=== PATIENT | female | born 1960 | race Caucasian/White ===

== ENCOUNTER 2017-01-14 00:43 | Emergency (ER) | payer OTHER ==
--- NOTE | 2017-01-14 03:20 | ED ORDER SUMMARY ---
..... Patient: BRISSA ORO OrderSheet [facility] VisitID: [id number] [address] [place] [address] 56y, F Registration Date/Time: 01/14/2017 ORDER SHEET Weight: 81.6 kg (stated) Allergies: No Known Drug Allergy GENERAL ORDERS: CBC w Diff Urgent (01:01/14/2017 HSoule per protocol) (Ack 1:15 AMcQuoid ER Tech1) (1:15 AMcQuoid ER Tech1) (1:16 CBradburn R.N.) CMP Urgent (:01/14/2017 HSoule per protocol) (Ack 1:15 AMcQuoid ER Tech1) (1:15 AMcQuoid ER Tech1) (1:16 CBradburn R.N.) UA-Culture if indicated Urgent (:01/14/2017 HSoule per protocol) (Ack 1:15 AMcQuoid ER Tech1) (2:18 CBradburn R.N.) Amylase Urgent (:01/14/2017 HSoule per protocol) (Ack 1:15 AMcQuoid ER Tech1) (1:15 AMcQuoid ER Tech1) (1:16 CBradburn R.N.) Lipase Urgent (01:01/14/2017 HSoule per protocol) (Ack 1:15 AMcQuoid ER Tech1) (1:15 AMcQuoid ER Tech1) (1:16 CBradburn R.N.) Abdomen 1V Urgent (02:26 01/14/2017 Ladonna Umaña) (Ack 2:28 RKaruga) (2:36 CBradburn R.N.) CT Abd/Pel wo Cont Urgent (02:40 01/14/2017 Ladonna Umaña) (2:45 CBradburn R.N.) Culture, Urine (Urine, Clean Catch) Urgent (03:15 01/14/2017 Ladonna Umaña) (3:17 CBradburn R.N.) MEDICATION ORDERS: Insulin Reg Subcut 10 units (HIGH ALERT MEDICATION, NOW) (02:26 01/14/2017 Ladonna Umaña) (Ack 2:43 CBradburn R.N.) (2:55 Amy R.N.) IV FLUIDS: IV Saline Lock (01:14 01/14/2017 HSoule per protocol) (1:15 KYRAradvikas R.N.) IV NS : initial bolus none -, then 1000 mL/hr for X1 (NOW) (01:01/14/2017 Ladonna Umaña) (1:45 Amy R.N.) Toradol IV 30 mg (NOW) (:01/14/2017 Ladonna Umaña) (1:46 Amy R.N.) Zofran IV 4 mg (NOW) (:01/14/2017 Ladonna Umaña) (1:46 Amy R.N.) Ceftriaxone IV 1 gm/50mL (NOW) (03:16 01/14/2017 Ladonna Umaña) (Ack 3:20 CBradvikas R.N.) (3:24 KYRAradvikas R.N.) ORDER SHEET NOTES: [Electronically signed by Ailyn Cuevas R.N. (03:51 01/14/2017)] [Electronically signed by Hernan Moon Dr. (07:01 01/14/2017)] [Electronically locked/signed by Ailyn Cuevas R.N. (03:51 01/14/2017)]
--- NOTE | 2017-01-14 03:20 | ED ORDER SUMMARY ---
..... Patient: BRISSA ORO OrderSheet [facility] VisitID: [id number] [address] [place] [address] 56y, F Registration Date/Time: 01/14/2017 ORDER SHEET Weight: 81.6 kg (stated) Allergies: No Known Drug Allergy GENERAL ORDERS: CBC w Diff Urgent (01:01/14/2017 HSoule per protocol) (Ack 1:15 AMcQuoid ER Tech1) (1:15 AMcQuoid ER Tech1) (1:16 CBradburn R.N.) CMP Urgent (:01/14/2017 HSoule per protocol) (Ack 1:15 AMcQuoid ER Tech1) (1:15 AMcQuoid ER Tech1) (1:16 CBradburn R.N.) UA-Culture if indicated Urgent (:01/14/2017 HSoule per protocol) (Ack 1:15 AMcQuoid ER Tech1) (2:18 CBradburn R.N.) Amylase Urgent (:01/14/2017 HSoule per protocol) (Ack 1:15 AMcQuoid ER Tech1) (1:15 AMcQuoid ER Tech1) (1:16 CBradburn R.N.) Lipase Urgent (01:01/14/2017 HSoule per protocol) (Ack 1:15 AMcQuoid ER Tech1) (1:15 AMcQuoid ER Tech1) (1:16 CBradburn R.N.) Abdomen 1V Urgent (02:26 01/14/2017 Ladonna Umaña) (Ack 2:28 RKaruga) (2:36 CBradburn R.N.) CT Abd/Pel wo Cont Urgent (02:40 01/14/2017 Ldaonna Umaña) (2:45 CBradburn R.N.) Culture, Urine (Urine, Clean Catch) Urgent (03:15 01/14/2017 Ladonna Umaña) (3:17 CBradburn R.N.) MEDICATION ORDERS: Insulin Reg Subcut 10 units (HIGH ALERT MEDICATION, NOW) (02:26 01/14/2017 Ladonna Umaña) (Ack 2:43 CBradburn R.N.) (2:55 Amy R.N.) IV FLUIDS: IV Saline Lock (01:14 01/14/2017 HSoule per protocol) (1:15 KYRAradvikas R.N.) IV NS : initial bolus none -, then 1000 mL/hr for X1 (NOW) (01:01/14/2017 Ladonna Umaña) (1:45 Amy R.N.) Toradol IV 30 mg (NOW) (:01/14/2017 Ladonna Umaña) (1:46 Amy R.N.) Zofran IV 4 mg (NOW) (:01/14/2017 Ladonna Umaña) (1:46 Amy R.N.) Ceftriaxone IV 1 gm/50mL (NOW) (03:16 01/14/2017 Ladonna Umaña) (Ack 3:20 CBradviksa R.N.) (3:24 KYRAradvikas R.N.) ORDER SHEET NOTES: [Electronically signed by Ailyn Cuevas R.N. (03:51 01/14/2017)] [Electronically signed by Hernan Moon Dr. (07:01 01/14/2017)] [Electronically locked/signed by Ailyn Cuevas R.N. (03:51 01/14/2017)]
--- NOTE | 2017-01-14 03:20 | ED NURSING NOTES ---
Clinical Report - Nurses [place] [address] [place] [address] 01/14/2017 0:42 [id number] Triage time 00:49. Acuity: LEVEL 3. Chief Complaint: ABDOMINAL PAIN, NAUSEA and VOMITING. --00:58 Ailyn Cuevas R.N. 00:49 01/14/17. BP: 158/96 taken on the left arm, while lying. HR: 98 (regular and normal rate). RR: 18 (regular and unlabored). O2 saturation: 98% on room air. Temp: 99.2 F (oral). Pain level now: 03/23. --00:58 Ailyn Cuevas R.N. Weight: 81.6 kg stated. Height/Length: 63 inches Per Patient. BMI: 31.9. --00:51 Ailyn Cuevas R.N. Medications Lisinopril Oral, daily. --00:52 Ailyn Cuevas R.N. Gabapentin Oral (Tablet 800 mg) 1 tablet, 4x a day. --00:53 Ailyn Cuevas R.N. CloNIDine HCl Oral, 2x a day. --00:53 Ailyn Cuevas R.N. Lantus Subcutaneous 80 units, every AM. --00:53 Ailyn Cuevas R.N. HumaLOG Subcutaneous 13 units, before meals. --00:54 Ailyn Cuevas R.N. Allergies No Known Drug Allergy. --00:56 Ailyn Cuevas R.N. History Arrived by EMS. Historian: patient. Accompanied by family. Primary physician (Ricardo). This started today. ( Epigastric and LLQ pain today mostly some pain for a couple of days but worse today, c/o nausea denies vomiting). She has had abdominal pain. PAST MEDICAL HX: Diabetes mellitus. Immunizations: up-to-date. SOCIAL HX: Heavy tobacco smoker (cigarette)- 1-2 packs per day. No alcohol use or drug use. She has not traveled outside the [place] The patient was not exposed to tuberculosis, influenza, chicken pox, meningitis, MRSA, VRE, C-diff, SARS, Braeden flu, H1N1 flu, Ebola or MERS. No known contact with a sick individual. ABUSE ASSESSMENT: No report of abuse. SELF HARM ASSESSMENT: A self harm assessment was performed. The patient answered "no" to the question "Have you recently felt down, depressed, or hopeless?", "Have you noticed less interest or pleasure in doing things?", "Do you have thoughts of harming or killing yourself?", "Are you here because you tried to hurt yourself?", "Have you ever tried to hurt yourself before today?", "Have you recently had thoughts about harming or killing others?" and "Do you have any dangerous items in your possession?". FALL RISK ASSESSMENT: Fall risk assessment completed. No fall risk identified. NUTRITIONAL RISK ASSESSMENT: The nutritional risk assessment revealed no deficiencies. FUNCTIONAL ASSESSMENT: Functional assessment: no impairments noted. LEARNING NEEDS ASSESSMENT: The learning needs assessment revealed no barriers. SKIN INTEGRITY ASSESSMENT: Skin integrity risk assessment completed. No skin integrity risk identified. --00:58 Ailyn Cuevas R.N. PROBLEMS: Pancreatitis. Cellulitis. Diabetes Mellitus. Infections. Peripheral Neuropathy. Tetanus Status. Immunizations. --00:56 Ailyn Cuevas R.N. ADDITIONAL SURGERIES: Toe amputation. Tubal Ligation. --00:56 Ailyn Cuevas R.N. Interventions ID band on patient. --00:58 Ailyn Cuevas R.N. PHYSICAL ASSESSMENT To room via stretcher. GENERAL / NEURO / PSYCH: Alert. Oriented X 4. Appears in no acute distress. Appears in pain. HEENT: Mucous membranes are pink. RESPIRATORY: Respirations not labored. Breath sounds within normal limits. CVS: Normal sinus rhythm noted. Capillary refill less than 2 seconds. GI / : The patient has had intermittent episodes of nausea. Abdomen soft. Abdominal tenderness in the epigastric area and left upper quadrant. Bowel sounds within normal limits. SKIN: Skin is warm and dry. --00:59 Ailyn Cuevas R.N. NURSING PROGRESS NOTES 00:55 01/14/2017 Site #1 started via IV in the right antecubital space with an 20g angiocath, with aseptic technique and good blood return; one attempt. Blood drawn: rainbow set. Labeled in the presence of the patient and sent to the lab. Saline lock flushed with 10 mL saline. --00:59 Ailyn Cuevas R.N. Patient gowned. Reassurance given to the patient. Two patient identifiers checked. Call light placed in reach. Side rails up x 2. Bed placed in lowest position. Brakes of bed on. Patient ready for evaluation- chart flagged. --00:59 Ailyn Cuevas R.N. 01:40 01/14/2017 Started bag #1 1000 mL IV Fluids IV NS (Saline); bolus of 1000 mL wide open then over 1 hour(s) via site #1. Allergies verified and confirmed 5 rights. IV patency established. IV site checked: no pain, redness, or swelling. IV flushed thoroughly pre- and post-medication administration. --01:45 Ailyn Cuevas R.N. 01:41 01/14/2017 Toradol IVP 30 mg given over 2 minute(s) via site #1. Allergies verified and confirmed 5 rights. IV patency established. IV site checked: no pain, redness, or swelling. IV flushed thoroughly pre- and post-medication administration. IVP given by RN. --01:46 Ailyn Cuevas R.N. 01:43 01/14/2017 Zofran (Ondansetron HCl) IVP 4 mg given over 2 minute(s) via site #1. Allergies verified and confirmed 5 rights. IV patency established. IV site checked: no pain, redness, or swelling. IV flushed thoroughly pre- and post-medication administration. IVP given by RN. --01:46 Ailyn Cuevas R.N. Patient returned from radiology by stretcher with tech. (02:36). --02:36 Ailyn Cuevas R.N. Overall patient status is the same- she states feels the same. GI / : The patient reports abdominal pain located in the LUQ that is moderate in severity, is constant and is described as dull and radiating to the back. --02:42 Ailyn Cuevas R.N. 02:41 01/14/17. BP: 152/68 taken on the left arm. HR: 89 (regular and normal rate). RR: 18 (regular and unlabored). O2 saturation: 98% on room air. Temp: deferred. Pain level now: 02/20. --02:42 Ailyn Cuevas R.N. Patient transported to SC by stretcher with tech. (02:45). --02:45 Ailyn Cuevas R.N. 02:50 01/14/2017 IV Fluids IV NS Discontinued: bag #1 completed. Total amount infused: 1000 mL. IV patency established. IV site checked: no pain, redness, or swelling. IV flushed thoroughly. --02:50 Ailyn Cuevas R.N. Patient returned from CT by stretcher with tech. (02:51). --02:51 Ailyn Cuevas R.N. 02:55 01/14/2017 Insulin Reg Subcutaneous 10 unit given. Given in the right abdomen. Allergies verified and confirmed 5 rights. (witnessed by Lyric HARPER). --02:55 Ailyn Cuevas R.N. Overall patient status is improved- she states feels better. GI / : Abdomen soft. Bowel sounds within normal limits. SKIN: Skin is warm and dry. Skin color within normal limits. --02:56 Ailyn Cuevas R.N. Two patient identifiers checked. Call light placed in reach. Side rails up x 2. Bed placed in lowest position. Brakes of bed on. --02:56 Ailyn Cuevas R.N. 03:24 01/14/2017 Started 1 gm of Ceftriaxone IVPB in bag #1 50 mL; over 20 minute(s) via site #1 via IV pump. Allergies verified and confirmed 5 rights. IV patency established. IV site checked: no pain, redness, or swelling. IV flushed thoroughly pre- and post-medication administration. --03:24 Ailyn Cuevas R.N. 03:42 01/14/2017 Ceftriaxone IVPB Discontinued: bag #1 completed upon discharge. Total amount infused: 50 mL. IV patency established. IV site checked: no pain, redness, or swelling. IV flushed thoroughly. --03:48 Ailyn Cuevas R.N. 03:45 01/14/2017 Site #1 removed upon discharge. Catheter intact. Manual pressure and bandage applied. --03:49 Ailyn Cuevas R.N. 03:45 01/14/2017 IV Saline Lock Drip IV Discontinued: bag #1 upon discharge. Total amount infused: 50 mL. IV patency established. IV site checked: no pain, redness, or swelling. IV flushed thoroughly. --03:49 Ailyn Cuevas R.N. DISPOSITION / DISCHARGE Condition at departure: improved and stable. No learning barriers present. Discharge instructions provided and reviewed with the patient and family. Reviewed medication(s) side effects, precautions, dosing and course information. Prescription(s) given to the patient. Patient verbalized understanding. Written instructions provided in Faroese. The patient was discharged home and accompanied by family. She left the Emergency Department ambulatory and via private vehicle. Family member driving. --03:51 Ailyn Cuevas R.N. 03:45 01/14/17. BP: 154/70 taken on the left arm, while lying. HR: 83. RR: 18. O2 saturation: 100% on room air. Temp: deferred. Pain level now: 10/21. --03:51 Ailyn Cuevas R.N. Departure time: 0345. --03:51 Ailyn Cuevas R.N. Locked/Released at 01/14/2017 3:51 by Ailyn Cuevas R.N.
--- NOTE | 2017-01-14 03:20 | ED CLINICAL REPORT ---
Clinical Report - Physicians/Mid Levels [facility] [address] [place] [address] 01/14/2017 0:42 Patient: BRISSA ORO Time Seen: 00:54; initial patient contact. Arrived- By private vehicle. Historian- patient. HISTORY OF PRESENT ILLNESS Chief Complaint: ABDOMINAL PAIN. It is described as "pain" and diffuse. No radiation. It is described as located in the upper abdomen and in the left abdomen. At its maximum, severity described as moderate. When seen in the E.D., severity described as moderate. Modifying factors. Not worsened by anything. Not relieved by anything. The patient has had nausea. No loss of appetite, vomiting or diarrhea. Similar symptoms previously: Many times. Recent medical care: Not recently seen/assessed. REVIEW OF SYSTEMS The patient has had constipation. No difficulty with urination, pain with urination, fever or chills. All systems otherwise negative, except as recorded above. PAST HISTORY Pancreatitis. Cellulitis. Diabetes Mellitus. Infections. Peripheral Neuropathy. SURGERIES: Toe amputation. Tubal Ligation. Medications: HumaLOG Subcutaneous 13 units, before meals. Lantus Subcutaneous 80 units, every AM. CloNIDine HCl Oral, 2x a day. Gabapentin Oral (Tablet 800 mg) 1 tablet, 4x a day. Lisinopril Oral, daily. Allergies: No Known Drug Allergy. SOCIAL HISTORY Current every day heavy tobacco smoker. No alcohol use or drug use. ADDITIONAL NOTES The nursing notes have been reviewed. PHYSICAL EXAM Vital Signs: 01/14/2017 00:49 BP: 158/96. HR: 98. RR: 18. O2 saturation: 98%. Temp: 99.2 F. Pain level now: 8/10. Have been reviewed. Hypertensive. Heart rate normal. Respiratory rate normal. Temperature normal. Oxygen saturation normal. Appearance: Alert. Oriented X3. No acute distress. Eyes: Eyes normal inspection. No scleral icterus. ENT: Dry mucous membranes present. CVS: Normal heart rate and rhythm. Heart sounds normal. Respiratory: No respiratory distress. Breath sounds normal. Abdomen: Soft. Mild tenderness in the left side of the abdomen. No guarding or rebound tenderness. Bowel sounds normal. No organomegaly. No mass. Back: Normal inspection. No CVA tenderness. Skin: Skin warm and dry. Normal skin color. Extremities: No lower extremity edema. Neuro: Oriented X 3. LABS, X-RAYS, AND EKG KUB: No acute disease. Gas pattern normal. Normal abdominal study. Views: supine AP. Abdominal CT: Mild perinephric fat stranding on the L c/w pyelonephritis. Study type: renal stone evaluation. Abdominal CT performed without contrast. The study was independently viewed by me, interpreted by the radiologist and discussed with the radiologist. Laboratory Tests: UA-Culture if indicated: (GUSTAVO: 01/14/2017 02:13) ( MsgRcvd 01/14/2017 02:33) Final results Test Result Flag Units (Reference) URINE COLOR YELLOW URINE APPEARANCE CLEAR URINE GLUCOSE 3+ (NEGATIVE) URINE BILIRUBIN NEGATIVE (NEGATIVE) URINE KETONE 1+ (NEGATIVE) URINE SPECIFIC GRAVITY >= 1.030 (1.010-1.030) URINE PH 5.5 (5.0-8.0) URINE PROTEIN 3+ (NEGATIVE) URINE UROBILINOGEN 0.2 EU/dL (0.2-1.0) URINE NITRITE NEGATIVE (NEGATIVE) URINE BLOOD 2+ (NEGATIVE) URINE LEUK ESTERASE NEGATIVE (NEGATIVE) URINE RBC 3-5 rbc/hpf (0-1) URINE WBC 1-3 wbc/hpf (0-1) URINE EPITHELIAL CELLS RARE EPI/hpf (0-5) URINE BACTERIA NONE SEEN (NONE SEEN) URINE COMMENT CULT NOT INDICATED URINE CULTURES ARE SET-UP BASED ON THE FOLLOWING CRITERIA:POSITIVE NITRITEPOSITIVE LEUKOCYTE ESTERASEGREATER THAN 10 WHITE BLOOD CELLSMODERATE (2+) OR GREATER BACTERIA CBC w Diff: (GUSTAVO: 01/14/2017 01:00) ( MsgRcvd 01/14/2017 01:29) Final results Test Result Flag Units (Reference) WHITE BLOOD COUNT 11.9 H K/uL (4.5-11.5) RED BLOOD COUNT 4.66 M/uL (4.00-5.20) HEMOGLOBIN 14.2 gm/dL (12.0-16.0) HEMATOCRIT 40.8 % (36.0-46.0) MEAN CELL VOLUME 88 fL (80-100) MEAN CORPUSCULAR HGB 31 pg (26-34) MEAN CORPUSCULAR HGB CONC 35 g/dL (31-37) RED CELL DISTRIBUTION WIDTH 13.4 % (11.6-14.8) PLATELET COUNT 232 K/uL (150-400) NEUTROPHIL % 68.9 % (50-75) LYMPH % 24.1 L % (25-40) MONO % 5.7 % (3-14) EOSINOPHIL % 0.9 % (0-4) BASOPHIL % 0.4 % (0-2) CMP: (GUSTAVO: 01/14/2017 01:00) ( MsgRcvd 01/14/2017 01:37) Final results Test Result Flag Units (Reference) GLUCOSE 439 H mg/dL (70-110) BUN 27 H mg/dL (7-18) CREATININE 1.4 H mg/dL (0.6-1.3) Estimated GFR 41.34 mL/min Estimated GFR- 50.11 mL/min Note: Persistent reduction over 3 months in eGFR<60 mL/min/1.73 m2 defines CKD. Patients with eGFR values>=60 mL/min/1.73 m2 may also have CKD if evidence ofpersistent proteinuria. Additional information may be foundat www.kidney.org. SODIUM 136 mmol/L (136-145) POTASSIUM 4.5 mmol/L (3.5-5.1) CHLORIDE 97 L mmol/L (98-107) CARBON DIOXIDE 26 mmol/L (21-32) CALCIUM 9.2 mg/dL (8.5-10.1) TOTAL PROTEIN 7.6 g/dL (6.4-8.2) ALBUMIN 4.0 g/dL (3.3-5.0) BILIRUBIN, TOTAL 0.3 mg/dL (0.0-1.0) ALKALINE PHOSPHATASE 108 U/L (46-116) AST (SGOT) 15 U/L (15-37) ALT (SGPT) 23 U/L (12-78) LIPASE 205 U/L (73-393) AMYLASE 48 U/L (25-115) . PROGRESS AND PROCEDURES Disposition: Discharged home in good and improved condition. Condition: good. CLINICAL IMPRESSION Acute pyelonephritis INSTRUCTIONS Your Current Medications: CONTINUE TAKING THE FOLLOWING MEDICATIONS: CloNIDine HCl Oral : 2x a day. Gabapentin Oral : Tablet 800 mg, 1 tablet 4x a day. HumaLOG Subcutaneous : 13 units before meals. Lantus Subcutaneous : 80 units every AM. Lisinopril Oral : daily. Prescription Medications: Cefixime 400 mg: take 1 tab orally every day. No refill. (For 14 days. Disp #14) Follow-up: Follow up with your doctor in about three days. Call for an appointment. Blood pressure screening was not performed during this visit because the patient has an active diagnosis of hypertension. (Electronically signed by Hernan Moon Dr. 01/14/2017 7:01)
--- NOTE | 2017-01-14 07:01 | ED MAR SUMMARY ---
..... Medication Administration Record [facility] [address] [place] [address] Patient: BRISSA ORO Visit ID: [id number] 56y, F Weight: 81.6 kg Height/Length: 63 in BMI: 31.9 ALLERGIES: No Known Drug Allergy Start 01:40 01/14/2017 Ailyn Cuevas R.N., Stop 02:50 01/14/2017 Ailyn Cuevas R.N. Medication Administered: IV NS (SALINE), Dose: IV Fluids over 1 hour(s), Bolus: 1000 mL wide open, Dispensed: 1000 mL bag, Site: #1 right AC. Medication Ordered: IV NS : initial bolus none -, then 1000 mL/hr for X1 (NOW). Given 01:41 01/14/2017 Ailyn Cuevas R.N. Medication Administered: TORADOL [IVP], Dose: 30 mg IVP over 2 minute(s), Site: #1 right AC. Medication Ordered: Toradol IV 30 mg (NOW). Given 01:43 01/14/2017 Ailyn Cuevas R.N. Medication Administered: ZOFRAN [IVP] (ONDANSETRON HCL), Dose: 4 mg IVP over 2 minute(s), Site: #1 right AC. Medication Ordered: Zofran IV 4 mg (NOW). Given 02:55 01/14/2017 Ailyn Cuveas R.N. Medication Administered: INSULIN REG [SUBCUTANEOUS], Dose: 10 unit Subcutaneous. Medication Ordered: Insulin Reg Subcut 10 units (HIGH ALERT MEDICATION, NOW). Start 03:24 01/14/2017 Ailyn Cuevas R.N., Stop 03:42 01/14/2017 Ailyn Cuevas R.N. Medication Administered: CEFTRIAXONE [IVPB], Dose: 1 gm IVPB over 20 minute(s), Dispensed: 50 mL bag, Site: #1 right AC. Medication Ordered: Ceftriaxone IV 1 gm/50mL (NOW).
--- NOTE | 2017-01-14 07:01 | ED DISCHARGE INSTRUCTIONS ---
Patient: BRISSA ORO General Instructions [facility] VisitID: [id number] [address] [place] [address] 56y, F Registration Date/Time: 01/14/2017 Acute pyelonephritis INSTRUCTIONS Your Current Medications: CONTINUE TAKING THE FOLLOWING MEDICATIONS: CloNIDine HCl Oral : 2x a day. Gabapentin Oral : Tablet 800 mg, 1 tablet 4x a day. HumaLOG Subcutaneous : 13 units before meals. Lantus Subcutaneous : 80 units every AM. Lisinopril Oral : daily. Prescription Medications: Cefixime 400 mg: take 1 tab orally every day. No refill. (For 14 days. Disp #14) Follow-up: Follow up with your doctor in about three days. Call for an appointment. Blood pressure screening was not performed during this visit because the patient has an active diagnosis of hypertension. ADDITIONAL INFORMATION Kidney Infection [Adult, Female] An infection of the kidney is also called "pyelonephritis". It usually starts as a bladder infection ("cystitis") which spreads to the kidneys. Pyelonephritis is more serious than a bladder infection. It can cause severe illness if not treated properly. The usual symptoms include an aching pain in the back, side or lower abdomen. Other symptoms may include fever, chills, nausea, vomiting, an urge to urinate and a burning sensation when passing urine. Home Care: Stay home from work or school. Rest in bed until your fever breaks and you are feeling better. Drink lots of fluid (at least 6-8 glasses a day, unless you must restrict fluids for other medical reasons). This will force the medicine into your urinary system and flush the bacteria out of your body. Avoid sexual intercourse until you have finished all of your medicine and your symptoms have gone away. Avoid caffeine, alcohol and spicy foods which may irritate the kidney and bladder. You may use acetaminophen (Tylenol) or ibuprofen (Motrin, Advil) to control pain, unless another pain medicine was prescribed. [NOTE: If you have chronic liver or kidney disease or ever had a stomach ulcer or GI bleeding, talk with your doctor before using these medicines.] Follow Up with your doctor or as advised by our staff for a repeat urine test in 10 days. This will ensure that your infection is fully cleared. [NOTE: If you had an X-ray or CT scan, it will be reviewed by a specialist. You will be notified of any new findings that may affect your care.] Get Prompt Medical Attention if any of the following occur: Fever over 100.4F (38.0C) after 48 hours of treatment No improvement by the third day of treatment Increasing back or abdominal pain Repeated vomiting or inability to take oral medicine Weakness, dizziness or fainting Cefixime Oral tablet What is this medicine? CEFIXIME (sef IX eem) is a cephalosporin antibiotic. It is used to treat certain kinds of bacterial infections. It will not work for colds, flu, or other viral infections. How should I use this medicine? Take this medicine by mouth with a glass of water. Follow the directions on the prescription label. You can take it with or without food. If it upsets your stomach, take it with food. Take your medicine at regular intervals. Do not take it more often than directed. Take all of your medicine as directed even if you think your are better. Do not skip doses or stop your medicine early. Talk to your pbx inspector regarding the use of this medicine in children. While this drug may be prescribed for children as young as 6 months for selected conditions, precautions do apply. What side effects may I notice from receiving this medicine? Side effects that you should report to your doctor or health customer care specialist as soon as possible: allergic reactions like skin rash, itching or hives, swelling of the face, lips, or tongue bloody or watery diarrhea difficulty breathing or wheezing dizziness fever pain or trouble passing urine or change in the amount of urine redness, blistering, peeling or loosening of the skin, including inside the mouth seizures unusual bleeding or bruising unusually weak or tired yellowing of the eyes or skin Side effects that usually do not require medical attention (report to your doctor or health customer care specialist if they continue or are bothersome): diarrhea headache genital or anal irritation loss of appetite nausea, vomiting stomach pain, upset, or gas What may interact with this medicine? aspirin and aspirin-like medicines carbamazepine medicines that treat or prevent blood clots like warfarin What if I miss a dose? If you miss a dose, take it as soon as you can. If it is almost time for your next dose, take only that dose. Do not take double or extra doses. Where should I keep my medicine? Keep out of the reach of children. Store at room temperature between 20 and 25 degrees C (68 and 77 degrees F). Throw away any unused medicine after the expiration date. What should I tell my health care provider before I take this medicine? They need to know if you have any of these conditions: bleeding problems kidney disease stomach or intestine problems (especially colitis) an unusual or allergic reaction to cefixime, other cephalosporin or penicillin antibiotics, other foods, dyes or preservatives or trying to get breast-feeding What should I watch for while using this medicine? Tell your doctor or health customer care specialist if your symptoms do not improve or if you get new symptoms. Your doctor will monitor your condition and blood work as needed. Do not treat diarrhea with over the counter products. Contact your doctor if you have diarrhea that lasts more than 2 days or if it is severe and watery. This medicine can interfere with some urine glucose and some urine ketone tests. If you use such tests, talk with your health customer care specialist. If you are being treated for a sexually transmitted disease, avoid sexual contact until you have finished your treatment. Having sex can infect your sexual partner. You have been given the following additional information: Pyelonephritis, Female (Adult) Cefixime Oral tablet (Electronically signed by Hernan Moon Dr. 01/14/2017 7:01)
--- NOTE | 2017-01-14 07:01 | ED DISCHARGE INSTRUCTIONS ---
Patient: BRISSA ORO General Instructions [facility] VisitID: [id number] [address] [place] [address] 56y, F Registration Date/Time: 01/14/2017 Acute pyelonephritis INSTRUCTIONS Your Current Medications: CONTINUE TAKING THE FOLLOWING MEDICATIONS: CloNIDine HCl Oral : 2x a day. Gabapentin Oral : Tablet 800 mg, 1 tablet 4x a day. HumaLOG Subcutaneous : 13 units before meals. Lantus Subcutaneous : 80 units every AM. Lisinopril Oral : daily. Prescription Medications: Cefixime 400 mg: take 1 tab orally every day. No refill. (For 14 days. Disp #14) Follow-up: Follow up with your doctor in about three days. Call for an appointment. Blood pressure screening was not performed during this visit because the patient has an active diagnosis of hypertension. ADDITIONAL INFORMATION Kidney Infection [Adult, Female] An infection of the kidney is also called "pyelonephritis". It usually starts as a bladder infection ("cystitis") which spreads to the kidneys. Pyelonephritis is more serious than a bladder infection. It can cause severe illness if not treated properly. The usual symptoms include an aching pain in the back, side or lower abdomen. Other symptoms may include fever, chills, nausea, vomiting, an urge to urinate and a burning sensation when passing urine. Home Care: Stay home from work or school. Rest in bed until your fever breaks and you are feeling better. Drink lots of fluid (at least 6-8 glasses a day, unless you must restrict fluids for other medical reasons). This will force the medicine into your urinary system and flush the bacteria out of your body. Avoid sexual intercourse until you have finished all of your medicine and your symptoms have gone away. Avoid caffeine, alcohol and spicy foods which may irritate the kidney and bladder. You may use acetaminophen (Tylenol) or ibuprofen (Motrin, Advil) to control pain, unless another pain medicine was prescribed. [NOTE: If you have chronic liver or kidney disease or ever had a stomach ulcer or GI bleeding, talk with your doctor before using these medicines.] Follow Up with your doctor or as advised by our staff for a repeat urine test in 10 days. This will ensure that your infection is fully cleared. [NOTE: If you had an X-ray or CT scan, it will be reviewed by a specialist. You will be notified of any new findings that may affect your care.] Get Prompt Medical Attention if any of the following occur: Fever over 100.4F (38.0C) after 48 hours of treatment No improvement by the third day of treatment Increasing back or abdominal pain Repeated vomiting or inability to take oral medicine Weakness, dizziness or fainting Cefixime Oral tablet What is this medicine? CEFIXIME (sef IX eem) is a cephalosporin antibiotic. It is used to treat certain kinds of bacterial infections. It will not work for colds, flu, or other viral infections. How should I use this medicine? Take this medicine by mouth with a glass of water. Follow the directions on the prescription label. You can take it with or without food. If it upsets your stomach, take it with food. Take your medicine at regular intervals. Do not take it more often than directed. Take all of your medicine as directed even if you think your are better. Do not skip doses or stop your medicine early. Talk to your solution maker regarding the use of this medicine in children. While this drug may be prescribed for children as young as 6 months for selected conditions, precautions do apply. What side effects may I notice from receiving this medicine? Side effects that you should report to your doctor or health care navigator as soon as possible: allergic reactions like skin rash, itching or hives, swelling of the face, lips, or tongue bloody or watery diarrhea difficulty breathing or wheezing dizziness fever pain or trouble passing urine or change in the amount of urine redness, blistering, peeling or loosening of the skin, including inside the mouth seizures unusual bleeding or bruising unusually weak or tired yellowing of the eyes or skin Side effects that usually do not require medical attention (report to your doctor or health care navigator if they continue or are bothersome): diarrhea headache genital or anal irritation loss of appetite nausea, vomiting stomach pain, upset, or gas What may interact with this medicine? aspirin and aspirin-like medicines carbamazepine medicines that treat or prevent blood clots like warfarin What if I miss a dose? If you miss a dose, take it as soon as you can. If it is almost time for your next dose, take only that dose. Do not take double or extra doses. Where should I keep my medicine? Keep out of the reach of children. Store at room temperature between 20 and 25 degrees C (68 and 77 degrees F). Throw away any unused medicine after the expiration date. What should I tell my health care provider before I take this medicine? They need to know if you have any of these conditions: bleeding problems kidney disease stomach or intestine problems (especially colitis) an unusual or allergic reaction to cefixime, other cephalosporin or penicillin antibiotics, other foods, dyes or preservatives or trying to get breast-feeding What should I watch for while using this medicine? Tell your doctor or health care navigator if your symptoms do not improve or if you get new symptoms. Your doctor will monitor your condition and blood work as needed. Do not treat diarrhea with over the counter products. Contact your doctor if you have diarrhea that lasts more than 2 days or if it is severe and watery. This medicine can interfere with some urine glucose and some urine ketone tests. If you use such tests, talk with your health care navigator. If you are being treated for a sexually transmitted disease, avoid sexual contact until you have finished your treatment. Having sex can infect your sexual partner. You have been given the following additional information: Pyelonephritis, Female (Adult) Cefixime Oral tablet (Electronically signed by Hernan Moon Dr. 01/14/2017 7:01)
--- NOTE | 2017-01-14 07:01 | ED MED RECONCILIATION SUMMARY ---
Patient: BRISSA ORO Medication Reconciliation Report [facility] VisitID: [id number] [address] [place] [address] 56y, F Registration Date/Time: 01/14/2017 Weight: 81.6 kg Height/Length: 63 in. BMI: 31.9 ALLERGIES: No Known Drug Allergy The patient's Home Medications are listed below: CONTINUE TAKING THE FOLLOWING MEDICATIONS: CloNIDine HCl Oral, 2x a day Gabapentin Oral (800 mg) 1 tablet, 4x a day HumaLOG Subcutaneous 13 units, before meals Lantus Subcutaneous 80 units, every AM Lisinopril Oral, daily The source(s) of the original Home Medication information: Not obtained. The following Medications were given to the patient in the Emergency Department: IV NS IV Fluids bolus 1000 mL wide open, administered: 01/14/2017 1:40:00 AM Toradol [IVP] IVP 30 mg, administered: 01/14/2017 1:41:00 AM Zofran [IVP] IVP 4 mg, administered: 01/14/2017 1:43:00 AM Insulin Reg [Subcutaneous] Subcutaneous 10 unit, administered: 01/14/2017 2:55:00 AM Ceftriaxone [IVPB] IVPB bolus 0, then 1 gm, administered: 01/14/2017 3:24:00 AM The following Medications were prescribed to the patient: Cefixime 400 mg: take 1 tab orally every day. No refill.(For 14 days. Disp #14) -- Hernan Moon Dr.
--- NOTE | 2017-01-14 07:01 | ED MAR SUMMARY ---
..... Medication Administration Record [facility] [address] [place] [address] Patient: BRISSA ORO Visit ID: [id number] 56y, F Weight: 81.6 kg Height/Length: 63 in BMI: 31.9 ALLERGIES: No Known Drug Allergy Start 01:40 01/14/2017 Ailyn Cuevas R.N., Stop 02:50 01/14/2017 Ailyn Cuevas R.N. Medication Administered: IV NS (SALINE), Dose: IV Fluids over 1 hour(s), Bolus: 1000 mL wide open, Dispensed: 1000 mL bag, Site: #1 right AC. Medication Ordered: IV NS : initial bolus none -, then 1000 mL/hr for X1 (NOW). Given 01:41 01/14/2017 Ailyn Cuevas R.N. Medication Administered: TORADOL [IVP], Dose: 30 mg IVP over 2 minute(s), Site: #1 right AC. Medication Ordered: Toradol IV 30 mg (NOW). Given 01:43 01/14/2017 Ailyn Cuevas R.N. Medication Administered: ZOFRAN [IVP] (ONDANSETRON HCL), Dose: 4 mg IVP over 2 minute(s), Site: #1 right AC. Medication Ordered: Zofran IV 4 mg (NOW). Given 02:55 01/14/2017 Ailyn Cuevas R.N. Medication Administered: INSULIN REG [SUBCUTANEOUS], Dose: 10 unit Subcutaneous. Medication Ordered: Insulin Reg Subcut 10 units (HIGH ALERT MEDICATION, NOW). Start 03:24 01/14/2017 Ailyn Cuevas R.N., Stop 03:42 01/14/2017 Ailyn Cuevas R.N. Medication Administered: CEFTRIAXONE [IVPB], Dose: 1 gm IVPB over 20 minute(s), Dispensed: 50 mL bag, Site: #1 right AC. Medication Ordered: Ceftriaxone IV 1 gm/50mL (NOW).
--- NOTE | 2017-01-14 07:01 | ED MED RECONCILIATION SUMMARY ---
Patient: BRISSA ORO Medication Reconciliation Report [facility] VisitID: [id number] [address] [place] [address] 56y, F Registration Date/Time: 01/14/2017 Weight: 81.6 kg Height/Length: 63 in. BMI: 31.9 ALLERGIES: No Known Drug Allergy The patient's Home Medications are listed below: CONTINUE TAKING THE FOLLOWING MEDICATIONS: CloNIDine HCl Oral, 2x a day Gabapentin Oral (800 mg) 1 tablet, 4x a day HumaLOG Subcutaneous 13 units, before meals Lantus Subcutaneous 80 units, every AM Lisinopril Oral, daily The source(s) of the original Home Medication information: Not obtained. The following Medications were given to the patient in the Emergency Department: IV NS IV Fluids bolus 1000 mL wide open, administered: 01/14/2017 1:40:00 AM Toradol [IVP] IVP 30 mg, administered: 01/14/2017 1:41:00 AM Zofran [IVP] IVP 4 mg, administered: 01/14/2017 1:43:00 AM Insulin Reg [Subcutaneous] Subcutaneous 10 unit, administered: 01/14/2017 2:55:00 AM Ceftriaxone [IVPB] IVPB bolus 0, then 1 gm, administered: 01/14/2017 3:24:00 AM The following Medications were prescribed to the patient: Cefixime 400 mg: take 1 tab orally every day. No refill.(For 14 days. Disp #14) -- Hernan Moon Dr.
--- NOTE | 2017-01-14 07:57 | DIAGNOSTIC IMAGING REPORT ---
PROCEDURE: CT ABDOMEN/PELVIS W/O CONTRAST INDICATION: Left flank pain and hematuria. TECHNIQUE: Noncontrast axial images were obtained of the entire abdomen and pelvis with sagittal and coronal reformations. COMPARISON: KUB 01/14/2017. FINDINGS: ABDOMEN: Lung base are clear. Heart size is normal. Small calcified gallstone. Liver, pancreas, spleen and adrenal glands are normal. Normal kidneys and ureters without urolithiasis or hydronephrosis. Minor left perinephric stranding. Mild atherosclerosis of the aorta. Small hiatal hernia. PELVIS: Normal appendix. 1.5 cm right adnexal cyst. Punctate calcification in each ovary. Uterus and bladder are normal. Mild degenerative changes of the spine. IMPRESSION: 1. Mild left perinephric stranding without evidence of calculi or hydronephrosis. Consider pyelonephritis. Correlate clinically 2. Cholelithiasis 3. Preliminary results submitted by Dr. Mcguire, [facility] radiology. All CT scans at this facility use dose modulation, iterative reconstruction, and/or weight-based dosing when appropriate to reduce radiation dose to as low as reasonably achievable.
--- NOTE | 2017-01-14 07:57 | DIAGNOSTIC IMAGING REPORT ---
PROCEDURE: CT ABDOMEN/PELVIS W/O CONTRAST INDICATION: Left flank pain and hematuria. TECHNIQUE: Noncontrast axial images were obtained of the entire abdomen and pelvis with sagittal and coronal reformations. COMPARISON: KUB 01/14/2017. FINDINGS: ABDOMEN: Lung base are clear. Heart size is normal. Small calcified gallstone. Liver, pancreas, spleen and adrenal glands are normal. Normal kidneys and ureters without urolithiasis or hydronephrosis. Minor left perinephric stranding. Mild atherosclerosis of the aorta. Small hiatal hernia. PELVIS: Normal appendix. 1.5 cm right adnexal cyst. Punctate calcification in each ovary. Uterus and bladder are normal. Mild degenerative changes of the spine. IMPRESSION: 1. Mild left perinephric stranding without evidence of calculi or hydronephrosis. Consider pyelonephritis. Correlate clinically 2. Cholelithiasis 3. Preliminary results submitted by Dr. Mcguire, [facility] radiology. All CT scans at this facility use dose modulation, iterative reconstruction, and/or weight-based dosing when appropriate to reduce radiation dose to as low as reasonably achievable.
--- NOTE | 2017-01-14 07:59 | DIAGNOSTIC IMAGING REPORT ---
PROCEDURE: XR ABDOMEN 1 VIEW INDICATION: ABDOMINAL PAIN TECHNIQUE: AP supine view. COMPARISON: None. FINDINGS: Bowel gas pattern is normal. Two small radiodensities in the epigastric region suggestive of pill fragments. No masses or unusual calcifications. Osseous structures are unremarkable. IMPRESSION: 1. Negative one-view abdomen.
== END 2017-01-14 03:45 | disposition home or self-care (01) ==
LOC: ED SRH 00:43
DX: N10 Acute pyelonephritis (principal); E11.40 Type 2 diabetes mellitus with diabetic neuropathy, unspecified; F17.210 Nicotine dependence, cigarettes, uncomplicated; Z79.4 Long term (current) use of insulin; Z79.899 Other long term (current) drug therapy
CPT/HCPCS: 90004; 90100; 90469; 92235; 92530; 95059